=== PATIENT | male | born 1990 | race Caucasian/White ===

== ENCOUNTER 2021-12-29 08:34 | Emergency (ER) | payer OTHER ==
[2021-12-29] MEDS ORDERED: NAPROXEN500 MG PO (11:10)
[2021-12-29] MEDS ORDERED: CYCLOBENZAPRINE10 MG PO (11:10)
== END 2021-12-29 12:01 | disposition home or self-care (01) ==
LOC: FER 08:34
DX: S93.402A Sprain of unspecified ligament of left ankle, initial encounter (principal); S93.401A Sprain of unspecified ligament of right ankle, initial encounter; S39.012A Strain of muscle, fascia and tendon of lower back, initial encounter; I10 Essential (primary) hypertension; Z28.311 Partially vaccinated for COVID-19; W17.89XA Other fall from one level to another, initial encounter; Y92.89 Other specified places as the place of occurrence of the external cause; Y99.0 Civilian activity done for income or pay
CPT/HCPCS: 72128; 72131; 73610